=== PATIENT | female | born 1960 | race Two or more races ===

== ENCOUNTER 2024-09-01 09:54 | Outpatient (AMB) | payer MEDICARE, SELFPAY ==
[2024-09-01 10:45] VITALS: BP 147/88; PULSE 77; RESP 18; TEMP 36.4; O2SAT 96; BMI 39.0
--- NOTE | 2024-09-01 10:45 | PD.ORTHCLVIS ---
Vital signs 09/01/24 10:45 Height 1.5 m Height Method Stated Weight 87.657 kg Weight Measurement Method Standing Scale BMI 39.0 BP 147/88 H Blood Pressure Source Automatic Cuff Blood Pressure Location Right Upper Arm Position Sitting Respiration 18 Pulse 77 Pulse Source Monitor Temp 97.5 F Temp Source Temporal Artery Scan Pulse Oximetry (%) 96 Oxygen Delivery Method Room Air Med/Allergies Allergies & Medications Allergies codeine Allergy (Intermediate, Verified 09/01/24 10:46) HIVES Medication Reconciliation gabapentin 600 mg tablet 600 mg PO QDAY 09/01/24 [History Confirmed 09/01/24] hydrochlorothiazide 12.5 mg capsule 12.5 mg PO QDAY 09/01/24 [History Confirmed 09/01/24] ibuprofen 600 mg tablet 600 mg PO TID 09/01/24 [History Confirmed 09/01/24] lisinopril 40 mg tablet 40 mg PO QDAY 09/01/24 [History Confirmed 09/01/24] omeprazole 20 mg capsule,delayed release 20 mg PO QDAY 09/01/24 [History Confirmed 09/01/24] Subjective Visit Visit for: new patient and knee Immunization / Flu Flu Vaccine in the Last 12 Months: Yes Flu Vaccine Exclusion Criteria: Already Received History of Present Illness Chief complaint: LEFT KNEE PAIN Date of injury / onset of symptoms: 2.5 YEARS Swati is a pleasant 64-year-old female with left knee pain and left knee arthritis. She has significant bilateral knee pain worse on the left. The pain is affecting her quality life and happiness. This been ongoing for least 3 years and she has used a cane to help her. She also tried Voltaren as well as injections and oral anti-inflammatories. She has had multiple injections in both knees. Personal History Occupation: UNEMPLOYED Red flag PMH: none Pain Pain level (0-10): 6 Pain duration: COMES AND GOES Pain location: inside (medial), outside (lateral), anterior and posterior Pain quality: sharp Pain timing: increases with activity and stairs Associated signs & symptoms: weakness and stiffness Ambulatory data Ambulatory device: cane Treatments Improvement with previous injections: No Improvement with PT: No Improvement with NSAIDS: no Review of Systems Review of Systems: All systems negative unless otherwise noted in HPI. Exam Exam Patient is in no acute distress and is cooperative with the examination today. Breathing is nonlabored. In no respiratory distress. Bilateral extremities were evaluated and demonstrates sensation intact to light touch. Palpable pedal pulses are present. No significant edema is present. Bilateral hips were examined. The patient has no pain with log roll of the hips. Internal rotation to 30 degrees and external rotation to 30 degrees is painless. Negative FADIR. Right knee was examined today. The right knee is in reasonable alignment. Range of motion is from 0-120 degrees. Knee is stable to varus and valgus as well as AP translation with <5mm. Patient has a negative McMurrays. There is no pain with patellofemoral compression and no crepitus noted. The knee is nontender to palpation. Left knee is in valgus. Range of motion 0 degrees. She is tender to palpation medially and laterally. Assessment and Plan Problem List (1) Degenerative arthritis of knee, bilateral: Status: Acute Plan: Patient is a 64-year-old female with bilateral knee pain and bilateral knee arthritis. She has failed conservative treatment. We thus discussed total knee replacement is a reasonable option. I would like to see her x-rays again for weightbearing films. She should get medical clearance. We will talk about surgery at the next visit once we get x-rays Office Procedures GNS Level of Care Nursing/Assessment Patient Status: Established Patient Nursing Assessment/Reassesment: Medication Reconciliation, Update PMH in EMR and Vital Signs Coordination of Care: Complex Care and Chronic Disease 1-5, Education Complex Pt/Fam, Consent,records obtained, informed consent, Results/Orders obtained and Staff clarify orders Established Patient Charge Established Patient Point Assignment: 95 Established Patient Point Charge: EP Level 3 (80-115) Past Medical History Past Medical History Have you ever been diagnosed with any of the following: Respiratory Problems Smoking: No Smoking Exposure: No
== END 2024-09-01 11:28 | disposition home or self-care (01) ==
LOC: HODSRG 09:54
PROVIDERS: PCP Student in an Organized Health Care Education/Training Program; Referring Provider Student in an Organized Health Care Education/Training Program; Supervising Provider Orthopaedic Surgery Adult Reconstructive Orthopaedic Surgery; Visit Provider Orthopaedic Surgery Adult Reconstructive Orthopaedic Surgery
DX: M17.0 Bilateral primary osteoarthritis of knee (principal); M25.562 Pain in left knee; M25.561 Pain in right knee
CPT/HCPCS: 99213; G0463

== ENCOUNTER 2024-09-22 08:45 | Outpatient (AMB) | payer MEDICARE, SELFPAY ==
[2024-09-22 09:11] VITALS: BP 149/83; PULSE 82; RESP 19; TEMP 36.6; O2SAT 96; BMI 39.4
--- NOTE | 2024-09-22 09:11 | PD.ORTHCLVIS ---
Vital signs 09/22/24 09:11 Height 1.5 m Height Method Stated Weight 88.536 kg Weight Measurement Method Standing Scale BMI 39.4 BP 149/83 H Blood Pressure Source Automatic Cuff Blood Pressure Location Right Upper Arm Position Sitting Respiration 19 Pulse 82 Pulse Source Monitor Temp 97.9 F Temp Source Temporal Artery Scan Pulse Oximetry (%) 96 Oxygen Delivery Method Room Air Med/Allergies Allergies & Medications Allergies codeine Allergy (Intermediate, Verified 09/22/24 09:12) HIVES Medication Reconciliation gabapentin 600 mg tablet 600 mg PO QDAY 09/01/24 [History Confirmed 09/22/24] hydrochlorothiazide 12.5 mg capsule 12.5 mg PO QDAY 09/01/24 [History Confirmed 09/22/24] ibuprofen 600 mg tablet 600 mg PO TID 09/01/24 [History Confirmed 09/22/24] lisinopril 40 mg tablet 40 mg PO QDAY 09/01/24 [History Confirmed 09/22/24] omeprazole 20 mg capsule,delayed release 20 mg PO QDAY 09/01/24 [History Confirmed 09/22/24] Exam Exam Patient is in no acute distress and is cooperative with the examination today. Breathing is nonlabored. In no respiratory distress. Bilateral extremities were evaluated and demonstrates sensation intact to light touch. Palpable pedal pulses are present. No significant edema is present. Bilateral hips were examined. The patient has no pain with log roll of the hips. Internal rotation to 30 degrees and external rotation to 30 degrees is painless. Negative FADIR. Right knee was examined today. The right knee is in reasonable alignment. Range of motion is from 0-120 degrees. Knee is stable to varus and valgus as well as AP translation with <5mm. Patient has a negative McMurrays. There is no pain with patellofemoral compression and no crepitus noted. The knee is nontender to palpation. Left knee is in valgus. Range of motion 0 degrees. She is tender to palpation medially and laterally. bv Assessment and Plan Problem List (1) Degenerative arthritis of knee, bilateral: Status: Acute Plan: Patient is a 64-year-old female with bilateral knee pain and bilateral knee arthritis worse on the left. She has failed conservative treatment. We thus discussed total knee replacement as a reasonable option. The left knee pain is significantly worse and we will thus start on that side. She is already tried injections, anti-inflammatories, physical therapy, and weight loss. Plan The nature and purpose of the total knee replacement, alternative method(s) of treatment, the material risks involved, and the possibility of complications were fully explained to the patient. The patient does NOT have any of the following contraindications to TKA: - Active infection of the knee joint, OR - Active systemic bacteremia, OR - Active skin infection or open wound at surgical site, OR - Neuropathic arthritis, OR - Severe, rapidly progressive neurological disease, OR - Severe medical condition that makes risks of surgery outweigh the potential benefit The patient was told the most common risks and complications associated with a total knee replacement include, but are not limited to: blood clots in the leg, fatal pulmonary embolism, dislocation of the prosthesis, intraoperative and postoperative fractures of the femur or tibia, infection, failure of the prosthesis or grafting materials, complications from anesthesia, reactions to blood transfusions, postoperative leg length inequality, instability of the knee replacement, nerve damage or injury, vascular injury, delayed wound healing, infection, other injury or even . In addition, there are risks associated with anesthesia given during this operation. Also, the patient was told that after undergoing a total knee replacement there may still be persistent pain or disability. The patient was informed that the success of this operation in part depends upon the mechanical devices which are going to be implanted and that these devices can fail or malfunction, and may need to be repaired or replaced and there are no guarantees as to the longevity of this device or its parts and that it or its parts could fail prematurely. The patient was also notified that during the course of surgery, there may be a need to use bone graft from donors, and that any bone graft used will be carefully screened for communicable diseases, including AIDS, hepatitis, Alex-Creutzfeldt, or other diseases, but despite the screening procedures, there is a small chance that they could contract one of these diseases. Finally, the patient was asked to follow completely and fully with all advice and recommended treatments, and that recovery and ultimate outcome are affected by their compliance with recommended treatment. We discussed the risks, benefits and treatment alternatives, and the patient is interested in proceeding with surgery. We will try to set this up as expeditiously as possible. Office Procedures GNS Level of Care Nursing/Assessment Patient Status: Established Patient Nursing Assessment/Reassesment: Medication Reconciliation, Update PMH in EMR and Vital Signs Coordination of Care: Complex Care and Chronic Disease 1-5, Education Complex Pt/Fam, Consent,records obtained, informed consent, Results/Orders obtained and Staff clarify orders Established Patient Charge Established Patient Point Assignment: 95 Established Patient Point Charge: EP Level 3 (80-115) MA Intake Visit Data Collection New Patient or Established: Established Patient (seen at [facility] within 3 years) Reason for Visit:: follow up xrays results Housing Management Representative Required: No PCP or OBGYN visit in last 3 months: Yes Hx Now: No Do You Feel Safe at Home: Yes Authorities Contacted: N/A Questionairres Past Medical History Past Medical History Have you ever been diagnosed with any of the following: Respiratory Problems Smoking: No Smoking Exposure: No Subjective Visit Visit for: x-rays Immunization / Flu Flu Vaccine in the Last 12 Months: Yes Flu Vaccine Exclusion Criteria: Already Received History of Present Illness Chief complaint: follow up xrays Venecia is a pleasant 64-year-old female with left knee pain and left knee arthritis. She has significant bilateral knee pain worse on the left. The pain is affecting her quality life and happiness. This bhas een ongoing for least 3 years and she has used a cane to help her. She also tried Voltaren as well as injections and oral anti-inflammatories. She has also tried therapy. She has had multiple injections in both knees. She has lost 10 pounds. Pain Pain level (0-10): 8 Pain duration: with movement Pain location: inside (medial) Pain quality: sharp and aching Pain timing: night and increases with activity Associated signs & symptoms: weakness, stiffness and other (specify) Treatments Improvement with previous injections: No Improvement with PT: No Improvement with NSAIDS: n/a Review of Systems Review of Systems: All systems negative unless otherwise noted in HPI.
== END 2024-09-22 09:48 | disposition home or self-care (01) ==
LOC: HODSRG 08:45
PROVIDERS: PCP Student in an Organized Health Care Education/Training Program; Referring Provider Student in an Organized Health Care Education/Training Program; Supervising Provider Orthopaedic Surgery Adult Reconstructive Orthopaedic Surgery; Visit Provider Orthopaedic Surgery Adult Reconstructive Orthopaedic Surgery
DX: M17.0 Bilateral primary osteoarthritis of knee (principal); M25.562 Pain in left knee; M25.561 Pain in right knee
CPT/HCPCS: 99213; G0463

== ENCOUNTER 2024-12-29 08:53 | Outpatient (AMB) | payer MEDICARE, SELFPAY ==
[2024-12-29 09:04] VITALS: BP 146/80; PULSE 82; RESP 19; TEMP 36.1; O2SAT 96; BMI 38.3
--- NOTE | 2024-12-29 09:04 | PD.ORTHCLVIS ---
Vital signs 12/29/24 09:04 Height 1.5 m Height Method Stated Weight 86.268 kg Weight Measurement Method Standing Scale BMI 38.3 BP 146/80 H Blood Pressure Source Automatic Cuff Blood Pressure Location Left Upper Arm Position Sitting Respiration 19 Pulse 82 Pulse Source Monitor Temp 97.0 F Temp Source Temporal Artery Scan Pulse Oximetry (%) 96 Oxygen Delivery Method Room Air Med/Allergies Allergies & Medications Allergies codeine Allergy (Intermediate, Verified 12/29/24 09:05) HIVES Medication Reconciliation gabapentin 600 mg tablet 600 mg PO QDAY 09/01/24 [History Confirmed 12/29/24] hydrochlorothiazide 12.5 mg capsule 12.5 mg PO QDAY 09/01/24 [History Confirmed 12/29/24] ibuprofen 600 mg tablet 600 mg PO TID 09/01/24 [History Confirmed 12/29/24] lisinopril 40 mg tablet 40 mg PO QDAY 09/01/24 [History Confirmed 12/29/24] omeprazole 20 mg capsule,delayed release 20 mg PO QDAY 09/01/24 [History Confirmed 12/29/24] Exam Exam Patient is in no acute distress and is cooperative with the examination today. Breathing is nonlabored. In no respiratory distress. Bilateral extremities were evaluated and demonstrates sensation intact to light touch. Palpable pedal pulses are present. No significant edema is present. Bilateral hips were examined. The patient has no pain with log roll of the hips. Internal rotation to 30 degrees and external rotation to 30 degrees is painless. Negative FADIR. Right knee was examined today. The right knee is in reasonable alignment. Range of motion is from 0-120 degrees. Knee is stable to varus and valgus as well as AP translation with <5mm. Patient has a negative McMurrays. There is no pain with patellofemoral compression and no crepitus noted. The knee is nontender to palpation. Left knee is in valgus. Range of motion 0 degrees. She is tender to palpation medially and laterally. bv Assessment and Plan Problem List (1) Degenerative arthritis of knee, bilateral: Status: Acute Plan: Patient is a 64-year-old female with bilateral knee pain and bilateral knee arthritis worse on the left. She has failed conservative treatment. We thus discussed total knee replacement as a reasonable option. The left knee pain is significantly worse and we will thus start on that side. She is already tried injections, anti-inflammatories, physical therapy, and weight loss. Plan The nature and purpose of the total knee replacement, alternative method(s) of treatment, the material risks involved, and the possibility of complications were fully explained to the patient. The patient does NOT have any of the following contraindications to TKA: - Active infection of the knee joint, OR - Active systemic bacteremia, OR - Active skin infection or open wound at surgical site, OR - Neuropathic arthritis, OR - Severe, rapidly progressive neurological disease, OR - Severe medical condition that makes risks of surgery outweigh the potential benefit The patient was told the most common risks and complications associated with a total knee replacement include, but are not limited to: blood clots in the leg, fatal pulmonary embolism, dislocation of the prosthesis, intraoperative and postoperative fractures of the femur or tibia, infection, failure of the prosthesis or grafting materials, complications from anesthesia, reactions to blood transfusions, postoperative leg length inequality, instability of the knee replacement, nerve damage or injury, vascular injury, delayed wound healing, infection, other injury or even . In addition, there are risks associated with anesthesia given during this operation. Also, the patient was told that after undergoing a total knee replacement there may still be persistent pain or disability. The patient was informed that the success of this operation in part depends upon the mechanical devices which are going to be implanted and that these devices can fail or malfunction, and may need to be repaired or replaced and there are no guarantees as to the longevity of this device or its parts and that it or its parts could fail prematurely. The patient was also notified that during the course of surgery, there may be a need to use bone graft from donors, and that any bone graft used will be carefully screened for communicable diseases, including AIDS, hepatitis, Alex-Creutzfeldt, or other diseases, but despite the screening procedures, there is a small chance that they could contract one of these diseases. Finally, the patient was asked to follow completely and fully with all advice and recommended treatments, and that recovery and ultimate outcome are affected by their compliance with recommended treatment. We discussed the risks, benefits and treatment alternatives, and the patient is interested in proceeding with surgery. We will try to set this up as expeditiously as possible. Office Procedures GNS Level of Care Nursing/Assessment Patient Status: Established Patient Nursing Assessment/Reassesment: Medication Reconciliation, Update PMH in EMR and Vital Signs Coordination of Care: Complex Care/Chronic Disease 5 or more, Education Complex Pt/Fam, Consent,records obtained, informed consent, 1 Ins Authorization and Staff clarify orders Established Patient Charge Established Patient Point Assignment: 115 Established Patient Point Charge: EP Level 3 (80-115) MA Intake Visit Data Collection New Patient or Established: Established Patient (seen at [facility] within 3 years) Reason for Visit:: PRE OP LEFT TKA Publications Distribution Clerk Required: No PCP or OBGYN visit in last 3 months: Yes Hx Now: No Do You Feel Safe at Home: Yes Authorities Contacted: N/A Questionairres Past Medical History Past Medical History Have you ever been diagnosed with any of the following: Cardiology Problems Hypertension: Yes Respiratory Problems Smoking: No Smoking Exposure: No Subjective Visit Visit for: follow up visit and knee Immunization / Flu Flu Vaccine in the Last 12 Months: Yes Flu Vaccine Exclusion Criteria: Already Received History of Present Illness Chief complaint: PRE OP LEFT TKA Venecia is a pleasant 64-year-old female with left knee pain and left knee arthritis. She has significant bilateral knee pain worse on the left. The pain is affecting her quality life and happiness. This bhas een ongoing for least 3 years and she has used a cane to help her. She also tried Voltaren as well as injections and oral anti-inflammatories. She has also tried therapy. She has had multiple injections in both knees. She has lost 10 pounds. Personal History Red flag PMH: none BMI Counceling provided: Yes Pain Pain level (0-10): 8 Pain duration: CONSTANT Pain location: inside (medial) Pain quality: sharp Pain timing: night Associated signs & symptoms: stiffness Ambulatory data Ambulatory device: none Treatments Improvement with previous injections: No Improvement with PT: No Improvement with NSAIDS: n/a Review of Systems Review of Systems: All systems negative unless otherwise noted in HPI.
== END 2024-12-29 09:18 | disposition home or self-care (01) ==
LOC: HODSRG 08:53
PROVIDERS: PCP Student in an Organized Health Care Education/Training Program; Referring Provider Student in an Organized Health Care Education/Training Program; Supervising Provider Orthopaedic Surgery Adult Reconstructive Orthopaedic Surgery; Visit Provider Orthopaedic Surgery Adult Reconstructive Orthopaedic Surgery
DX: M17.0 Bilateral primary osteoarthritis of knee (principal); M25.562 Pain in left knee; M25.561 Pain in right knee; I10 Essential (primary) hypertension
CPT/HCPCS: 99213; G0463

== ENCOUNTER → 2024-12-29 | Outpatient (CLI) | payer MEDICARE, SELFPAY ==
--- NOTE | 2024-12-29 10:08 | XR_ITS ---
Examination: CT left lower extremity, without contrast. 2-D sagittal reconstructions. 2-D coronal reconstructions. 3-D reconstructions. Date and time of exam:December 29, 2024 1035 hours INDICATIONS: Diagnosis left knee osteoarthritis knee pain 2.5 years CTDI: vol (mGy):14 DLP: (mGycm):944 Technique: Multiple 1.25 mm axial sections of the left lower extremity without intravenous contrast have been obtained. 2-D sagittal and coronal reconstructions have been obtained. 3-D reconstructions have been obtained. Low dose protocols were performed. One or more of the following dose reduction techniques were used; automated exposure control, adjustment of the mA and/or KV according to patient size, use of iterative reconstruction technique. Findings: Moderate osteopenia Moderate narrowing left hip joint No hip fracture or avascular necrosis Moderate to advanced narrowing medial and patellofemoral joints left knee No fracture Faint meniscus calcification IMPRESSION: Moderate to advanced narrowing medial patellofemoral joints left knee
== END | disposition home or self-care (01) ==
PROVIDERS: PCP Physician Assistant; Referring Provider Orthopaedic Surgery Adult Reconstructive Orthopaedic Surgery; Visit Provider Orthopaedic Surgery Adult Reconstructive Orthopaedic Surgery
DX: M25.862 Other specified joint disorders, left knee (principal)
CPT/HCPCS: 73700

== ENCOUNTER 2025-01-11 05:35 | Day surgery (SDC) | payer MEDICARE, SELFPAY ==
[2025-01-08 11:53] VITALS: BMI 38.3
[2025-01-08 13:18] LABS: Basophils # (Auto) 0.1 Thou/mm3 (0.0-0.2); Basophils % (Auto) 1 % (0-2.5); Eosinophils # (Auto) 0.2 Thou/mm3 (0.0-0.5); Eosinophils % (Auto) 2 % (0-10); Hematocrit 35.7 % (36.0-46.0); Hemoglobin 11.9 g/dL (12.0-16.0); Immature Granulocytes % (Auto) 0 % (0-0); Immature Granulocytes Auto 0.01 Thou/mm3 (0.00-0.00); Lymphocytes # (Auto) 2.6 Thou/mm3 (1.0-4.8); Lymphocytes % (Auto) 30 % (10-50); Mean Corpuscular HGB Conc 33.3 g/dl (31.0-37.0); Mean Corpuscular Hemoglobin 28.4 pg (25.0-35.0); Mean Corpuscular Volume 85 fL (80-100); Monocytes # (Auto) 0.6 Thou/mm3 (0.0-0.8); Monocytes % (Auto) 7 % (0-12); Neutrophils # (Auto) 5.2 Thou/mm3 (1.8-7.7); Neutrophils % (Auto) 60 % (37-80); Nucleated Red Blood Cell % 0 /100 WBC (0); Platelet Count 256 Thou/mm3 (140-440); RDW Standard Deviation 41.6 fL (36.4-46.3); Red Blood Count 4.19 Miln/mm3 (4.00-5.20); White Blood Count 8.7 Thou/mm3 (3.6-11.0)
[2025-01-08 13:24] LABS: INR 0.9 (0.9-1.3); Partial Thromboplastin Time 25.2 Seconds (22.0-36.0); Prothrombin Time 10.4 Seconds (9.0-12.2)
[2025-01-08 13:27] LABS: Alanine Aminotransferase 18 U/L (10-49); Albumin, Serum 4.5 gm/dL (3.4-4.8); Albumin/Globulin Ratio 1.6 (1.2-2.2); Alkaline Phosphatase 173 U/L (46-116); Anion Gap 8 (7-16); Aspartate Amino Transferase 18 U/L (0-34); BUN/Creatinine Ratio 23 Ratio (12-20); Bilirubin,Total 0.4 mg/dL (0.3-1.2); Blood Urea Nitrogen 21 mg/dL (9-23); Calcium 9.4 mg/dL (8.3-10.6); Calcium (Corrected) 9.4 mg/dL (8.5-10.1); Chloride 105 mMol/L (98-107); Creatinine (Component) 0.9 mg/dL (0.6-1.3); Estimated Creatinine Clearance 61.8 mL/min (>60); Globulin 2.9 gm/dL (2.3-3.5); Glucose 115 mg/dL (74-106); Osmolality,Calculated 287 (275-295); Potassium 4.1 mMol/L (3.4-5.1); Sodium 142 mMol/L (136-145); Total Protein 7.4 gm/dL (5.7-8.2); eGFR > 60 See Note
--- NOTE | 2025-01-08 14:24 | SUR.PREOP ---
Cardiac records from [address]e.
[2025-01-11] VITALS (13 sets, daily range): BP systolic 108–163; BP diastolic 69–96; PULSE 65–89; RESP 14–20; TEMP 36.2–36.9; O2SAT 97–100; BMI 45.3; BMI 13.0
[2025-01-11] MEDS: ACETAMINOPHEN 325 MG TABLET 650 MG PO (06:44)
[2025-01-11] MEDS: MELOXICAM 7.5 MG TABLET PO (06:45)
[2025-01-11] MEDS: PREGABALIN 75 MG CAPSULE PO (06:45)
[2025-01-11] MEDS: RINGERS LACTATED 1000 ML 1,000 ML 20 ML IV (06:46)
--- NOTE | 2025-01-11 07:22 | SUR.PREOP ---
Patient expressed gratitude for prayer before their procedure.
--- NOTE | 2025-01-11 09:22 | ESOP_ITS ---
Date of Procedure 01/11/25 Pre Op Diagnosis left knee osteoarthritis Post Op Diagnosis left knee osteoarthritis Procedure left total knee replacement arnold Findings left total knee replacement arnold Procedure Description Indication: The patient is a 64 year old who has a long history of left knee pain. X-rays show degenerative arthritis involving the knee. Over the past several years the patient has had increasing pain, progressive limitation in function. He has failed conservative measures including activity modification, physical therapy, injections, anti-inflammatories, and assistive devices. After a lengthy discussion of the risks and benefits, the patient presents now for total knee replacement. The nature and purpose of the total knee replacement, alternative method(s) of treatment, the material risks involved, and the possibility of complications were fully explained to the patient. The patient was told the most common risks and complications associated with a total knee replacement include, but are not limited to blood clots in the leg, fatal pulmonary embolism, dislocation of the prosthesis, intraoperative and postoperative fractures of the femur or tibia, infection, failure of the prosthesis or grafting materials, complications from anesthesia, reactions to blood transfusions, postoperative leg length inequality, instability of the knee replacement, nerve damage or injury, vascular injury, delayed wound healing, infections, other injury or even . In addition, there are risks associated with anesthesia given during this operation, temporary or permanent numbness on the skin lateral to the incision can be a complication unique to total knee surgery, and kneeling can be painful after knee replacement surgery. Also, the patient was told that after undergoing a total knee replacement there may still be pain or disability. We discussed with the patient that we will be using a robot-assisted technology. We discussed that there is a possibility of converting to manual instrumentation. The patient was informed that the success of this operation in part depends upon the mechanical devices which are going to be implanted and that these devices can fail or malfunction, and may need to be repaired or replaced and there are no guarantees as to the longevity of this device or its part and that it or its parts could fail prematurely. Finally, the patient was asked to follow completely and fully with all advice and recommended treatments, and that recovery and ultimate outcome are affected by their compliance with recommended treatment. Surgical technique: Patient was marked and consented in the pre-operative area. The patient was brought to the operating room and placed on the operating table in a supine position. Prior to positioning, a timeout procedure was performed between the surgeon, the anesthesiologist, and the nursing staff where the patient and the operative side were identified and confirmed. After adequate general anesthetic was obtained, the left lower extremity was prepped and draped in the usual sterile fashion. A weight based dose of Cefazolin were administered within 1 hour prior to incision. The robot was preregistered and calirated before the incision. The extremity was exsanguinated with an esmarch badge and tourniquet inflated to 250mmHg. A midline incision was made. A median parapatellar arthrotomy was made. The patella was subluxed laterally. A medial release was performed to expose the medial tibia. His femoral and tibial pins were placed through an intra incisional manner for both cases. Every effort was made to ensure that the distalmost aspect of the pin was hung in the second cortex. The arrays were then tightened several times to ensure that it was fixed for the remainder of the case. Both femoral and tibial checkpoints were then placed. We then went through the registration process of the bone. We then assessed the knee deformity and attempted to correct it. We also used the robot to aid in judging laxity in both extension and flexion. Final based on laxity and alignment we changed the preoperative assessment to obtain proper proper implant positioning and to correct deformity. Attention was then placed to the tibia. We made a tibial cut using the robot ensuring that both the MCL and the patella tendon were protected with retractors. We then went to the femur and made the posterior cut followed by the anterior cut and the anterior chamfer. The bone was then removed and we made a distal femur cut and a posterior chamfer cut. We verified all cuts. A trial reduction was performed with a size 2 femoral component and a size 2 keeled tibial component. The patella tracked centrally, and no lateral retinacular release was necessary. The trial implants were removed. The arrays, pins, and checkpoints were all removed. We performed a verification that all pins were removed. The cut bone surfaces were lavaged. A size 2 left femoral component, a size 2 keeled tibial component were impacted into position. The knee was felt to be well balanced in the sagittal and coronal plane. The final 2x10 mm cruciate- substituting articular insert was impacted into the tibial tray. The knee was brought out to full extension, flexed up to 120 degrees. It was stable to varus and valgus stress and appropriately balanced in flexion and extension. The wounds were copiously irrigated following deflation of tourniquet. The medial retinaculum was reapproximated with #1 vicryl and quill. The subcutaneous tissues were closed with 0 and 2-0 interrupted Vicryl. The skin was closed with 3-0 Monofilament V loc suture. A sterile dressing was applied. The patient was transferred to a bed and brought to recovery in stable condition. The patient tolerated the procedure well. There were no intraoperative complications. Sponge and needle counts were correct times 2. As the attending surgeon, I attest I was present and performed the entire operation. Grafts/Implants Size 2 CR Femur Size 2 Tibia 10mm poly CS Anesthesia GETA and spinal Implants isha Pathology / specimen None Pathology comment: none Estimated Blood Loss 150 Condition Stable Disposition same day Surgeon Del Crawley MD Surgical Staff Operation Date: 01/11/25 07:30 Case Staff Anesthesiologist: Brian Marcus RN First Assistant: Geneva Rajan
--- NOTE | 2025-01-11 09:27 | SUR.PHASEI ---
0927 Patient arrived to recovery resting comfortably in [facility], on oxygen 8L via oxy mask with an oral airway in place, breathing unlabored, vital signs stable, dressing intact to left knee; prineo, abd, webril, miguel wraps, no bleeding noted, bilateral dorsalis pedis pulses present when palpated, patient has good circulation to left lower extremity; skin color normal for patient and warm to touch, report received from Franky CHU and Dr. Marcus
--- NOTE | 2025-01-11 09:32 | XR_ITS ---
Examination: Left knee 2 views TECHNIQUE: AP lateral left knee 2 views Examination time: January 11, 2025 1051 hours INDICATIONS: Postop knee replacement FINDINGS: Total left knee arthroplasty. Satisfactory alignment Mild osteopenia IMPRESSION: Total left knee arthroplasty with satisfactory alignment
[2025-01-11] MEDS: HYDROmorphone INJ 2 MG/ML VIAL 0.4 MG IV ×2 (09:41→09:51)
[2025-01-11] MEDS: oxyCODONE HCL 5 MG IR TAB 10 MG PO (10:02)
--- NOTE | 2025-01-11 10:19 | SUR.PHASEII ---
patients at bedside with patient
--- NOTE | 2025-01-11 10:30 | SUR.PHASEII ---
at bedside visiting, conversing with pt. Responding to questions and commands appropriately. Positive CMS to both lower extremities. Tolerating ice chips PO. No s/o distress.
--- NOTE | 2025-01-11 10:34 | SUR.PHASEII ---
1025 Report given to Adrianne Nelson RN 1034 Report received from Adrianne Nelson RN
--- NOTE | 2025-01-11 11:43 | SUR.PHASEII ---
1143 Patient cleared by physical therapy to proceed with discharge
--- NOTE | 2025-01-11 11:55 | SUR.PHASEII ---
1155 Patient meets discharge criteria from recovery, awake and alert, breathing unlabored, vital sign stable, denies pain, dressing intact; no bleeding noted, denies nausea, assisted with dressing into her clothing by her , discharge instructions given to patient and patients with the assistance of the telephone drivers' cash clerk Ruby ID#[id number], patients signed discharge instructions. Patient given all her belongings prior to discharge, transported via wheelchair and left in a private vehicle.
== END 2025-01-11 11:55 | disposition home or self-care (01) ==
PROVIDERS: Anesthesiology; PCP Student in an Organized Health Care Education/Training Program; Referring Provider Orthopaedic Surgery Adult Reconstructive Orthopaedic Surgery; Visit Provider Orthopaedic Surgery Adult Reconstructive Orthopaedic Surgery
PROC: (CPT 27447; principal; 2025-01-11 07:30)
DX: M17.12 Unilateral primary osteoarthritis, left knee (principal)
CPT/HCPCS: 27447; 20985; 36415; 73560; 80053; 85025; 85610; 85730; 97162; A4217; C1713; C1776; J0131; J0690; J1100; J1885; J2250; J2405; J2704; J2795; J3010; J3490; J7030; J7120; J7999; A4648; A4649; A9270

== ENCOUNTER 2025-01-26 08:07 | Outpatient (AMB) | payer MEDICARE, SELFPAY ==
[2025-01-26 08:42] VITALS: BP 145/90; PULSE 75; RESP 18; TEMP 36.3; O2SAT 97; BMI 45.5
--- NOTE | 2025-01-26 08:42 | ORTHONT_ITS ---
Vital signs 01/26/25 08:42 Height 1.37 m Height Method Stated Weight 85.474 kg Weight Measurement Method Standing Scale BMI 45.5 BP 145/90 H Blood Pressure Source Automatic Cuff Blood Pressure Location Right Upper Arm Position Sitting Respiration 18 Pulse 75 Pulse Source Monitor Temp 97.3 F Temp Source Temporal Artery Scan Pulse Oximetry (%) 97 Oxygen Delivery Method Room Air Med/Allergies Allergies & Medications Allergies codeine Allergy (Intermediate, Verified 01/11/25 09:21) HIVES Exam Exam Patient is in no acute distress and is cooperative with the examination today. Breathing is nonlabored. In no respiratory distress. Bilateral extremities were evaluated and demonstrates sensation intact to light touch. Palpable pedal pulses are present. No significant edema is present. Bilateral hips were examined. The patient has no pain with log roll of the hips. Internal rotation to 30 degrees and external rotation to 30 degrees is painless. Negative FADIR. Right knee was examined today. The right knee is in reasonable alignment. Range of motion is from 0-120 degrees. Knee is stable to varus and valgus as well as AP translation with <5mm. Patient has a negative McMurrays. There is no pain with patellofemoral compression and no crepitus noted. The knee is nontender to palpation. Left knee incision is clean dry and intact Assessment and Plan Problem List (1) History of total left knee replacement: Status: Acute Plan: Patient is a 64-year-old female status post left total knee replacement. We recommend outpatient physical therapy at this point. She should finish her DVT prophylaxis and is doing well Office Procedures GNS Level of Care Nursing/Assessment Patient Status: Established Patient Nursing Assessment/Reassesment: Medication Reconciliation, Update PMH in EMR and Vital Signs Coordination of Care: Complex Care and Chronic Disease 1-5, Education Complex Pt/Fam, Consent,records obtained, informed consent, Lab and Imaging orders, Results/Orders obtained and Staff clarify orders Established Patient Charge Established Patient Point Assignment: 110 Established Patient Point Charge: EP Level 3 (80-115) MA Intake Visit Data Collection New Patient or Established: Established Patient (seen at [facility] within 3 years) Reason for Visit:: 2 Week post op Seen by Clinical Staff ONLY (RN/MA): No Verbal consent obtained for Telemed visit?: No Analytical Technician Required: No PCP or OBGYN visit in last 3 months: Yes Hx Now: No Do You Feel Safe at Home: Yes Authorities Contacted: N/A Questionairres Past Medical History Past Medical History Have you ever been diagnosed with any of the following: Neurological Problems Seizures: No Cardiology Problems Congestive Heart Failure: No Hypertension: Yes Respiratory Problems Chronic Obstructive Pulmonary Disease (COPD): No Asthma: Yes Smoking: No Smoking Exposure: No Stomache/Intestinal Problems Hepatitis: No Obesity: Yes Genital/Urinary Problems Renal Disease: No Reproductive Problems Previous Pregnancies: Yes Musculoskeletal Problems Arthritis: Yes Endocrine Problems Diabetes Mellitus Type 1: No Diabetes Mellitus Type 2: No Psychologic Problems Depression: Yes Anxiety: Yes Other Problems Hospitalization: No Shingles: No Blood Transfusions: No Blood Transfusion Reaction: No Anesthesia Reactions: No Chicken Pox: Yes Cancer: No Subjective Visit Visit for: follow up visit and knee Immunization / Flu Flu Vaccine in the Last 12 Months: Yes Flu Vaccine Exclusion Criteria: Already Received History of Present Illness Chief complaint: PRE OP LEFT TKA Venecia is a pleasant 64-year-old female with left knee pain and left knee arthritis. She has significant bilateral knee pain worse on the left. She is doing well status post left total knee replacement. The pain is minimal Personal History Red flag PMH: none BMI Counceling provided: Yes Pain Pain level (0-10): 8 Pain duration: CONSTANT Pain location: inside (medial) Pain quality: sharp Pain timing: night Associated signs & symptoms: stiffness Ambulatory data Ambulatory device: none Treatments Improvement with previous injections: No Improvement with PT: No Improvement with NSAIDS: n/a Review of Systems Review of Systems: All systems negative unless otherwise noted in HPI.
== END 2025-01-26 08:48 | disposition home or self-care (01) ==
LOC: HODSRG 08:07
PROVIDERS: PCP Student in an Organized Health Care Education/Training Program; Referring Provider Student in an Organized Health Care Education/Training Program; Supervising Provider Orthopaedic Surgery Adult Reconstructive Orthopaedic Surgery; Visit Provider Orthopaedic Surgery Adult Reconstructive Orthopaedic Surgery
DX: Z96.652 Presence of left artificial knee joint (principal); M17.12 Unilateral primary osteoarthritis, left knee; I10 Essential (primary) hypertension; J45.909 Unspecified asthma, uncomplicated
CPT/HCPCS: 99213; G0463

== ENCOUNTER 2025-02-23 08:27 | Outpatient (AMB) | payer MEDICARE, SELFPAY ==
[2025-02-23 08:50] VITALS: BP 143/73; PULSE 75; RESP 18; TEMP 36.7; O2SAT 95; BMI 44.5
--- NOTE | 2025-02-23 08:50 | PD.ORTHCLVIS ---
Vital signs 02/23/25 08:50 Height 1.37 m Height Method Stated Weight 83.603 kg Weight Measurement Method Standing Scale BMI 44.5 BP 143/73 H Blood Pressure Source Automatic Cuff Blood Pressure Location Right Upper Arm Position Sitting Respiration 18 Pulse 75 Pulse Source Monitor Temp 98.1 F Temp Source Temporal Artery Scan Pulse Oximetry (%) 95 Oxygen Delivery Method Room Air Med/Allergies Allergies & Medications Allergies codeine Allergy (Intermediate, Verified 02/23/25 08:51) HIVES Medication Reconciliation hydrochlorothiazide 12.5 mg capsule 12.5 mg PO QDAY 09/01/24 [History Confirmed 02/23/25] lisinopril 40 mg tablet 40 mg PO QDAY 09/01/24 [History Confirmed 02/23/25] omeprazole 20 mg capsule,delayed release 20 mg PO QDAY 09/01/24 [History Confirmed 02/23/25] albuterol sulfate 90 mcg/actuation aerosol inhaler 1 inh inhalation Q4H PRN shortness of breath or wheezing 01/08/25 [History Confirmed 02/23/25] amitriptyline 25 mg tablet 25 mg PO HS 01/08/25 [History Confirmed 02/23/25] semaglutide (weight loss) 0.25 mg/0.5 mL subcutaneous pen injector (Wegovy) 0.25 mg subcut QWEEK 01/08/25 [History Confirmed 02/23/25] acetaminophen 500 mg tablet (Acetaminophen Extra Strength) 1,000 mg (2 x 500 mg) PO Q6H PRN pain #90 tabs 01/11/25 [Rx Confirmed 02/23/25] aspirin 81 mg tablet,delayed release 81 mg PO BID #60 tabs 01/11/25 [Rx Confirmed 02/23/25] doxycycline hyclate 100 mg tablet 100 mg PO BID #14 tabs 01/11/25 [Rx Confirmed 02/23/25] gabapentin 300 mg capsule 300 mg PO .qhs #30 caps 01/11/25 [Rx Confirmed 02/23/25] sennosides 8.6 mg-docusate sodium 50 mg tablet (Senna-S) 1 tab-cap PO QDAY #30 tabs 01/11/25 [Rx Confirmed 02/23/25] gabapentin 600 mg tablet 600 mg PO QDAY #60 tabs 04/21/25 [Rx Confirmed 02/23/25] oxycodone 5 mg tablet 5 mg PO Q6H PRN pain #28 tabs 02/11/25 [Rx Confirmed 02/23/25] Exam Exam Patient is in no acute distress and is cooperative with the examination today. Breathing is nonlabored. In no respiratory distress. Bilateral extremities were evaluated and demonstrates sensation intact to light touch. Palpable pedal pulses are present. No significant edema is present. Bilateral hips were examined. The patient has no pain with log roll of the hips. Internal rotation to 30 degrees and external rotation to 30 degrees is painless. Negative FADIR. Right knee was examined today. The right knee is in reasonable alignment. Range of motion is from 0-120 degrees. Knee is stable to varus and valgus as well as AP translation with <5mm. Patient has a negative McMurrays. There is no pain with patellofemoral compression and no crepitus noted. The knee is nontender to palpation. Left knee incision is clean dry and intact. Range of motion is 0 to 100 degrees Assessment and Plan Problem List (1) History of total left knee replacement: Status: Acute Plan: Patient is a 64-year-old female status post left total knee replacement. We recommend outpatient physical therapy at this point. She is doing well after surgery. We will get her a cane today. She is walking well without a cane and she has showed me Office Procedures GNS Level of Care Nursing/Assessment Patient Status: Established Patient Nursing Assessment/Reassesment: Medication Reconciliation, Update PMH in EMR and Vital Signs Coordination of Care: Complex Care and Chronic Disease 1-5, Consent,records obtained, informed consent, Education Simp Pt/Fam, Results/Orders obtained and Staff clarify orders Established Patient Charge Established Patient Point Assignment: 90 Established Patient Point Charge: EP Level 3 (80-115) MA Intake Visit Data Collection New Patient or Established: Established Patient (seen at [facility] within 3 years) Reason for Visit:: 6 WK POST OP LT TKA Seen by Clinical Staff ONLY (RN/MA): No Tool Machine Shop Supervisor Required: No PCP or OBGYN visit in last 3 months: Yes Hx Now: No Do You Feel Safe at Home: Yes Authorities Contacted: N/A Questionairres Past Medical History Past Medical History Have you ever been diagnosed with any of the following: Neurological Problems Seizures: No Cardiology Problems Congestive Heart Failure: No Hypertension: Yes Respiratory Problems Chronic Obstructive Pulmonary Disease (COPD): No Asthma: Yes Smoking: No Smoking Exposure: No Stomache/Intestinal Problems Hepatitis: No Obesity: Yes Genital/Urinary Problems Renal Disease: No Reproductive Problems Previous Pregnancies: Yes Musculoskeletal Problems Arthritis: Yes Endocrine Problems Diabetes Mellitus Type 1: No Diabetes Mellitus Type 2: No Psychologic Problems Depression: Yes Anxiety: Yes Other Problems Hospitalization: No Shingles: No Blood Transfusions: No Blood Transfusion Reaction: No Anesthesia Reactions: No Chicken Pox: Yes Cancer: No Subjective Visit Visit for: follow up visit and post op #3 (6 WK POST OP LT TKA) Immunization / Flu Flu Vaccine in the Last 12 Months: Yes Flu Vaccine Exclusion Criteria: Already Received History of Present Illness Bilateral knee pain Personal History Red flag PMH: none Additional comments: Patient is a 64-year-old female with bilateral knee pain. She had a left total knee replacement and is doing well 6 weeks from surgery. She is to start outpatient therapy Pain Pain level (0-10): 8 Pain duration: 3 DAYS Pain location: anterior Pain quality: aching and burning Pain timing: night Associated signs & symptoms: stiffness Ambulatory data Ambulatory device: walker Walking distance (minutes): 5 Treatments Number of previous injections: 0 Number of Physical Therapy sessions: 0 Improvement with NSAIDS: n/a Review of Systems Review of Systems: All systems negative unless otherwise noted in HPI.
== END 2025-02-23 09:06 | disposition home or self-care (01) ==
LOC: HODSRG 08:27
PROVIDERS: PCP Student in an Organized Health Care Education/Training Program; Referring Provider Student in an Organized Health Care Education/Training Program; Supervising Provider Orthopaedic Surgery Adult Reconstructive Orthopaedic Surgery; Visit Provider Orthopaedic Surgery Adult Reconstructive Orthopaedic Surgery
DX: Z96.652 Presence of left artificial knee joint (principal); M25.562 Pain in left knee; M25.561 Pain in right knee; I10 Essential (primary) hypertension
CPT/HCPCS: 99213; G0463

== ENCOUNTER 2025-04-29 10:58 | Outpatient (AMB) | payer MEDICARE, SELFPAY ==
--- NOTE | 2025-04-29 10:54 | XR_ITS ---
Examination: Bilateral knees 2 views Right lateral knee left lateral knee 2 views Right axial knee left axial knee 2 views TECHNIQUE: Bilateral AP knees standing single view, bilateral PA knees standing single view flexion Standing right lateral knee left lateral knee 2 views Right axial knee left axial knee 2 views total 6 views Date and time: April 29, 2015 1123 hours INDICATIONS: Right knee pain 3 days left knee pain 3 days FINDINGS: Significant osteopenia Advanced narrowing medial joint space right knee Significant osteoarthritis lateral and patellofemoral joints right knee Total left knee arthroplasty. Satisfactory alignment. No loosening of the prosthetic components IMPRESSION: Advanced narrowing medial joint space right knee Significant osteoarthritis lateral patellofemoral joints right knee
[2025-04-29 11:30] VITALS: BP 159/85; PULSE 76; RESP 18; TEMP 36.6; O2SAT 98; BMI 42.5
--- NOTE | 2025-04-29 11:30 | PD.ORTHCLVIS ---
Vital signs 04/29/25 11:30 Height 1.37 m Height Method Stated Weight 79.832 kg Weight Measurement Method Standing Scale BMI 42.5 BP 159/85 H Blood Pressure Source Automatic Cuff Blood Pressure Location Left Upper Arm Position Sitting Respiration 18 Pulse 76 Pulse Source Monitor Temp 97.8 F Temp Source Temporal Artery Scan Pulse Oximetry (%) 98 Oxygen Delivery Method Room Air Med/Allergies Allergies & Medications Allergies codeine Allergy (Intermediate, Verified 02/23/25 08:51) HIVES Exam Exam Patient is in no acute distress and is cooperative with the examination today. Breathing is nonlabored. In no respiratory distress. Bilateral extremities were evaluated and demonstrates sensation intact to light touch. Palpable pedal pulses are present. No significant edema is present. Bilateral hips were examined. The patient has no pain with log roll of the hips. Internal rotation to 30 degrees and external rotation to 30 degrees is painless. Negative FADIR. Right knee was examined today. The right knee is in reasonable alignment. Range of motion is from 0-120 degrees. Knee is stable to varus and valgus as well as AP translation with <5mm. Patient has a negative McMurrays. There is no pain with patellofemoral compression and no crepitus noted. The knee is nontender to palpation. Left knee incision is clean dry and intact. Range of motion is 0 to 100 degrees Assessment and Plan Problem List (1) History of total left knee replacement: Status: Acute Plan: Patient is a 64-year-old female status post left total knee replacement. We recommend outpatient physical therapy at this point. She is doing well after surgery. She is very sensitive over the knee. It is likely from the saphenous nerve. We recommend Lyrica and we will see how she does Her left knee x-rays look great Office Procedures GNS Level of Care Nursing/Assessment Patient Status: Established Patient Nursing Assessment/Reassesment: Medication Reconciliation, Update PMH in EMR and Vital Signs Coordination of Care: Complex Care and Chronic Disease 1-5, Education Complex Pt/Fam, Consent,records obtained, informed consent, Results/Orders obtained and Staff clarify orders Established Patient Charge Established Patient Point Assignment: 95 Established Patient Point Charge: EP Level 3 (80-115) MA Intake Visit Data Collection New Patient or Established: Established Patient (seen at [facility] within 3 years) Seen by Clinical Staff ONLY (RN/MA): No Surveillance Monitor Required: No PCP or OBGYN visit in last 3 months: Yes Hx Now: No Do You Feel Safe at Home: Yes Authorities Contacted: N/A Questionairres Past Medical History Past Medical History Have you ever been diagnosed with any of the following: Neurological Problems Seizures: No Cardiology Problems Congestive Heart Failure: No Hypertension: Yes Respiratory Problems Chronic Obstructive Pulmonary Disease (COPD): No Asthma: Yes Smoking: No Smoking Exposure: No Stomache/Intestinal Problems Hepatitis: No Obesity: Yes Genital/Urinary Problems Renal Disease: No Reproductive Problems Previous Pregnancies: Yes Musculoskeletal Problems Arthritis: Yes Endocrine Problems Diabetes Mellitus Type 1: No Diabetes Mellitus Type 2: No Psychologic Problems Depression: Yes Anxiety: Yes Other Problems Hospitalization: No Shingles: No Blood Transfusions: No Blood Transfusion Reaction: No Anesthesia Reactions: No Chicken Pox: Yes Cancer: No Subjective Visit Visit for: follow up visit and post op #3 (6 WK POST OP LT TKA) Immunization / Flu Flu Vaccine in the Last 12 Months: Yes Flu Vaccine Exclusion Criteria: Already Received History of Present Illness Bilateral knee pain Personal History Red flag PMH: none Additional comments: Patient is a 64-year-old female with bilateral knee pain. She had a left total knee replacement and is doing well 12 weeks from surgery. She is to start outpatient therapy Pain Pain level (0-10): 8 Pain duration: 3 DAYS Pain location: anterior Pain quality: aching and burning Pain timing: night Associated signs & symptoms: stiffness Ambulatory data Ambulatory device: walker Walking distance (minutes): 5 Treatments Number of previous injections: 0 Number of Physical Therapy sessions: 0 Improvement with NSAIDS: n/a Review of Systems Review of Systems: All systems negative unless otherwise noted in HPI.
== END 2025-04-29 11:40 | disposition home or self-care (01) ==
LOC: HODSRG 10:58
PROVIDERS: PCP Student in an Organized Health Care Education/Training Program; Referring Provider Student in an Organized Health Care Education/Training Program; Supervising Provider Orthopaedic Surgery Adult Reconstructive Orthopaedic Surgery; Visit Provider Orthopaedic Surgery Adult Reconstructive Orthopaedic Surgery
DX: Z96.652 Presence of left artificial knee joint (principal); I10 Essential (primary) hypertension; E66.9 Obesity, unspecified; Z68.41 Body mass index [BMI] 40.0-44.9, adult
CPT/HCPCS: 73564; 99213; G0463